=== PATIENT | male | born 1980 | race Caucasian/White ===

== ENCOUNTER → 2018-10-06 16:32 | Outpatient (CLI) | payer OTHER, SELFPAY ==
[2018-10-06 18:24] LABS: Liquefaction Semen YES (YES); PH Semen 8 (7-8); Sperm Count 192 x10^6/mL (20-150); Sperm Morphology 23 %ABNORM (0-30); Sperm Motility 80% % Motile; Volume Semen 3 (1.0-5.0)
== END ==
PROVIDERS: Visit Provider Registered Nurse
DX: N46.9 Male infertility, unspecified (principal)
CPT/HCPCS: 89320